=== PATIENT | male | born 1955 | race Caucasian/White ===

== ENCOUNTER 2022-08-19 20:58 | Inpatient (IN) | payer MEDICARE, OTHER ==
[2022-08-19] MEDS ORDERED: MAGNESIUM SULFATE-D5W PMX 1 GM in DEXTROSE/WATER 1 100ML.BAG IVPB STA (22:33)
[2022-08-19] MEDS ORDERED: SODIUM CHLORIDE 0.9% 500 ML 500 ML IV STA (22:33)
[2022-08-19] MEDS ORDERED: ALBUTEROL NEBULIZED 2.5 MG/3 ML INHALATION STA (22:33)
[2022-08-19] MEDS ORDERED: IPRATROPIUM 0.5 MG/2.5 ML NEBU INHALATION STA (22:33)
[2022-08-19] MEDS ORDERED: predniSONE 20 MG TAB PO STA (22:33)
--- NOTE | 2022-08-19 23:25 | XR ---
EXAMINATION TYPE: XR chest 2V DATE OF EXAM: 08/19/2022 COMPARISON: NONE HISTORY: Difficulty breathing TECHNIQUE: 2 views FINDINGS: Heart and mediastinum are normal. Lungs are clear of consolidation. There is slight bluntin g right costophrenic angle. There are no hilar masses. There are chest leads. IMPRESSION: Mild pleural reaction lateral right lung base. Normal heart.
[2022-08-19 23:40] LABS: ALT 26 U/L (4-49); AST 45 U/L (17-59); African American GFR (CKD) >90 (>60 ml/min/1.73 sqM); Albumin 3.9 g/dL (3.5-5.0); Alkaline Phosphatase 70 U/L (38-126); Anion Gap 10 mmol/L; Blood Urea Nitrogen 14 mg/dL (9-20); Calcium 8.5 mg/dL (8.4-10.2); Carbon Dioxide 24 mmol/L (22-30); Chloride 98 mmol/L (98-107); Glucose 106 mg/dL (74-99); Magnesium 2.1 mg/dL (1.6-2.3); Non-African American GFR(CKD) >90 (>60 ml/min/1.73 sqM); Sodium 132 mmol/L (137-145); Total Bilirubin 0.8 mg/dL (0.2-1.3); Total Protein 6.6 g/dL (6.3-8.2)
[2022-08-19 23:51] LABS: Partial Thromboplastin Time 28.2 sec (22.0-30.0); Prothrombin Time 10.4 sec (9.0-12.0)
[2022-08-19 23:53] LABS: Basophils # (A) 0.1 k/uL (0-0.2); Basophils % (A) 1 %; Eosinophils # (A) 0.1 k/uL (0-0.7); Eosinophils % (A) 1 %; HCT 40.9 % (39.0-53.0); HGB 14.5 gm/dL (13.0-17.5); Lymphocytes # (A) 2.2 k/uL (1.0-4.8); Lymphocytes % (A) 23 %; MCH 33.2 pg (25.0-35.0); MCHC 35.6 g/dL (31.0-37.0); MCV 93.2 fL (80.0-100.0); Mean Platelet Volume 10.2; Monocytes % (A) 11 %; Neutrophils # (A) 5.7 k/uL (1.3-7.7); Neutrophils % (A) 61 %; Platelet Count 183 k/uL (150-450); RBC 4.38 m/uL (4.30-5.90); RDW 13.4 % (11.5-15.5); WBC 9.4 k/uL (3.8-10.6)
[2022-08-20 00:02] LABS: Potassium 4.8 mmol/L (3.5-5.1)
--- NOTE | 2022-08-20 00:14 | ED ---
SOB HPI - General Chief Complaint: Shortness of Breath Stated Complaint: Oxygen 85,KOFI Time Seen by Provider: 08/19/22 22:19 Source: patient, family Mode of arrival: wheelchair Limitations: no limitations - History of Present Illness Initial Comments: Patient presents with shortness of breath. His shortness of breath is worse with walking or exertion. He has no pain or swelling the arms or legs. He has no palpitations. He has no nausea or vomiting. He is not complaining of any chest pain or pressure or tightness. He has no headache. He has no neck pain or stiffness. - Related Data Home Medications Medication Instructions Recorded Confirmed Lansoprazole [Prevacid] PO DAILY 04/05/14 04/05/14 Previous Rx's Medication Instructions Recorded Hydrocodone/Acetaminophen 1 each PO Q4HR PRN #20 tablet 04/05/14 [Hydrocodone/Acetaminophen 5-325] Naproxen [Naprosyn] 500 mg PO Q12HR #24 tab 04/05/14 Allergies Allergy/AdvReac Type Severity Reaction Status Date / Time No Known Allergies Allergy Verified 08/19/22 21:35 Review of Systems ROS Statement: Those systems with pertinent positive or pertinent negative responses have been documented in the HPI. ROS Other: All systems not noted in ROS Statement are negative. Past Medical History Past Medical History: COPD Additional Past Medical History / Comment(s): sleep apnea History of Any Multi-Drug Resistant Organisms: None Reported Past Surgical History: Tonsillectomy Past Psychological History: No Psychological Hx Reported Smoking Status: Current every day smoker Past Alcohol Use History: None Reported Past Drug Use History: None Reported General Exam Limitations: no limitations General appearance: alert, in no apparent distress Head exam: Present: atraumatic, normocephalic, normal inspection Eye exam: Present: normal appearance, PERRL, EOMI. Absent: scleral icterus, conjunctival injection, periorbital swelling ENT exam: Present: normal exam, mucous membranes moist Neck exam: Present: normal inspection. Absent: tenderness, meningismus, lymphadenopathy Respiratory exam: Present: respiratory distress, wheezes. Absent: rales, rhonchi, stridor Cardiovascular Exam: Present: regular rate, normal rhythm, normal heart sounds. Absent: systolic murmur, diastolic murmur, rubs, gallop, clicks GI/Abdominal exam: Present: soft, normal bowel sounds. Absent: distended, tenderness, guarding, rebound, rigid Extremities exam: Present: normal inspection, full ROM, normal capillary refill. Absent: tenderness, pedal edema, joint swelling, calf tenderness Back exam: Present: normal inspection Neurological exam: Present: alert, oriented X3, CN II-XII intact Psychiatric exam: Present: normal affect, normal mood Skin exam: Present: warm, dry, intact, normal color. Absent: rash Course Vital Signs 08/19/22 08/19/22 08/19/22 21:35 22:53 23:17 Temperature 98.3 F Pulse Rate 91 80 87 Respiratory 18 Rate Blood Pressure 122/72 O2 Sat by Pulse 91 L Oximetry 08/19/22 23:57 Temperature Pulse Rate 89 Respiratory 19 Rate Blood Pressure 113/81 O2 Sat by Pulse 91 L Oximetry Medical Decision Making - Medical Decision Making Patient presents with shortness of breath. He is very hypoxic on room air requiring supplemental oxygen. He did not improve with IV magnesium. He will be admitted to the hospital. - Lab Data Result diagrams: 08/19/22 23:15 08/19/22 23:15 Lab Results 08/19/22 08/19/22 08/19/22 Range/Units 23:15 23:15 23:15 WBC 9.4 (3.8-10.6) k/uL RBC 4.38 (4.30-5.90) m/uL Hgb 14.5 (13.0-17.5) gm/dL Hct 40.9 (39.0-53.0) % MCV 93.2 (80.0-100.0) fL MCH 33.2 (25.0-35.0) pg MCHC 35.6 (31.0-37.0) g/dL RDW 13.4 (11.5-15.5) % Plt Count 183 (150-450) k/uL MPV 10.2 Neutrophils % 61 % Lymphocytes % 23 % Monocytes % 11 % Eosinophils % 1 % Basophils % 1 % Neutrophils # 5.7 (1.3-7.7) k/uL Lymphocytes # 2.2 (1.0-4.8) k/uL Monocytes # 1.0 (0-1.0) k/uL Eosinophils # 0.1 (0-0.7) k/uL Basophils # 0.1 (0-0.2) k/uL PT 10.4 (9.0-12.0) sec INR 1.0 (<1.2) APTT 28.2 (22.0-30.0) sec Sodium (137-145) mmol/L Potassium (3.5-5.1) mmol/L Chloride (98-107) mmol/L Carbon Dioxide (22-30) mmol/L Anion Gap mmol/L BUN (9-20) mg/dL Creatinine (0.66-1.25) mg/dL Est GFR (CKD-EPI)AfAm (>60 ml/min/1.73 sqM) Est GFR (CKD-EPI)NonAf (>60 ml/min/1.73 sqM) Glucose (74-99) mg/dL Plasma Lactic Acid Brad (0.7-2.0) mmol/L Calcium (8.4-10.2) mg/dL Magnesium (1.6-2.3) mg/dL Total Bilirubin (0.2-1.3) mg/dL AST (17-59) U/L ALT (4-49) U/L Alkaline Phosphatase (38-126) U/L Troponin I (0.000-0.034) ng/mL Total Protein (6.3-8.2) g/dL Albumin (3.5-5.0) g/dL Coronavirus (PCR) Detected A (Not Detectd) 08/19/22 08/19/22 08/19/22 Range/Units 23:15 23:15 23:15 WBC (3.8-10.6) k/uL RBC (4.30-5.90) m/uL Hgb (13.0-17.5) gm/dL Hct (39.0-53.0) % MCV (80.0-100.0) fL MCH (25.0-35.0) pg MCHC (31.0-37.0) g/dL RDW (11.5-15.5) % Plt Count (150-450) k/uL MPV Neutrophils % % Lymphocytes % % Monocytes % % Eosinophils % % Basophils % % Neutrophils # (1.3-7.7) k/uL Lymphocytes # (1.0-4.8) k/uL Monocytes # (0-1.0) k/uL Eosinophils # (0-0.7) k/uL Basophils # (0-0.2) k/uL PT (9.0-12.0) sec INR (<1.2) APTT (22.0-30.0) sec Sodium 132 L (137-145) mmol/L Potassium 4.8 (3.5-5.1) mmol/L Chloride 98 (98-107) mmol/L Carbon Dioxide 24 (22-30) mmol/L Anion Gap 10 mmol/L BUN 14 (9-20) mg/dL Creatinine 0.84 (0.66-1.25) mg/dL Est GFR (CKD-EPI)AfAm >90 (>60 ml/min/1.73 sqM) Est GFR (CKD-EPI)NonAf >90 (>60 ml/min/1.73 sqM) Glucose 106 H (74-99) mg/dL Plasma Lactic Acid Brad 1.1 (0.7-2.0) mmol/L Calcium 8.5 (8.4-10.2) mg/dL Magnesium 2.1 (1.6-2.3) mg/dL Total Bilirubin 0.8 (0.2-1.3) mg/dL AST 45 (17-59) U/L ALT 26 (4-49) U/L Alkaline Phosphatase 70 (38-126) U/L Troponin I 0.021 (0.000-0.034) ng/mL Total Protein 6.6 (6.3-8.2) g/dL Albumin 3.9 (3.5-5.0) g/dL Coronavirus (PCR) (Not Detectd) 08/20/22 00:14 Twelve-lead EKG shows ventricular rate 92 bpm, normal MA interval and QRS complexes, no ST elevation or depression, interpreted by me as normal sinus rhythm. Critical Care Time Critical Care Time: Yes (Initiation of IV magnesium) Total Critical Care Time: 35 Disposition Clinical Impression: COPD (chronic obstructive pulmonary disease) Disposition: ADMITTED IP TO THIS HOSP Condition: Serious Is patient prescribed a controlled substance at d/c from ED?: No Referrals: Taz Chance DO [Primary Care Provider] - 1-2 days
[2022-08-20] MEDS ORDERED: ONDANSETRON 4 MG/2 ML VIAL IVP PRN (00:15)
[2022-08-20] MEDS ORDERED: MAG HYDROX/AL HYDROX/SIMETH 30 ML CUP PO PRN (00:15)
[2022-08-20] MEDS ORDERED: TEMAZEPAM 7.5 MG CAP PO PRN (00:15)
[2022-08-20] MEDS ORDERED: DOCUSATE 100 MG CAP PO PRN (00:15)
[2022-08-20] MEDS ORDERED: ALPRAZolam 0.25 MG TAB PO PRN (00:15)
[2022-08-20] MEDS ORDERED: NALOXONE 0.4 MG/ML 1 ML VIAL IV PRN (00:15)
[2022-08-20] MEDS ORDERED: HYDROcodone/APAP 5-325MG 1 EACH TAB PO PRN (00:15)
[2022-08-20] MEDS ORDERED: ACETAMINOPHEN TAB 325 MG TAB PO PRN (00:15)
[2022-08-20] MEDS: SODIUM CHLORIDE 0.9% 1,000 ML IV SCH (00:27)
[2022-08-20] MEDS ORDERED: ALBUTEROL HFA INHALER INHALATION PRN (09:42)
[2022-08-20] MEDS: methylPREDNISolone SOD SUCCI 125 MG/2 ML VIAL IV SCH ×2 (11:58→18:27)
[2022-08-20] MEDS: ALBUTEROL HFA INHALER INHALATION SCH ×3 (12:15→19:25)
--- NOTE | 2022-08-20 13:50 | P.CNPUL ---
History of Present Illness Consult date: 08/20/22 Requesting physician: Magen Damon Reason for consult: dyspnea, abnormal CXR/CT Chief complaint: Shortness of breath, cough, congestion 1 week History of present illness: This is a pleasant 67-year-old male patient with a known history of chronic and ongoing tobacco dependence of 48 years. He has no regular primary care provider. He is not on any medications on a regular basis. He had been seen in the clinic and given an inhaler for 1 week history of shortness breath cough and congestion without much improvement. He presented here to the emergency room yesterday for the same. Chest x-ray reveals some atelectasis in the right lung base. Lab results revealed WBC 9.4. Hemoglobin 14.5. Platelet count 183. Sodium 132. Potassium 4.8. Chloride 98. Bicarb 24. BUN 14. Creatinine 0.84. Troponins negative 3. ProBNP 243. Beckford virus by PCR positive. He is not vaccinated. He is seen today in consultation on the regular medical floor. Awake and alert in no acute distress. Maintaining O2 saturations in the 90s on 3 L/m per nasal cannula. 0.9 normal saline 20 ML's per hour. No fever or chills. He was initiated on Review of Systems REVIEW OF SYSTEMS: CONSTITUTIONAL: Denies any recent significant weight loss or weight gain. EYES: Denies change in vision. EARS, NOSE, MOUTH, THROAT: Denies headaches, denies sore throat. CARDIOVASCULAR: Denies chest pain, palpitations or syncopal episodes. RESPIRATORY: Positive for shortness of breath, cough, congestion no hemoptysis. GASTROINTESTINAL: Denies change in appetite, denies abdominal pain GENITOURINARY: Denies hematuria, denies infections. MUSKULOSKELETAL: Denies pain, denies swelling. INTEGUMENTARY: Denies rash, denies eczema. NEUROLOGICAL: Denies recent memory loss, no recent seizure activity. PSYCHIATRIC: Denies anxiety, denies depression. HEMATOLOGIC/LYMPHATIC: Denies anemia, denies enlarged lymph nodes. Past Medical History Past Medical History: COPD Additional Past Medical History / Comment(s): sleep apnea History of Any Multi-Drug Resistant Organisms: None Reported Past Surgical History: Tonsillectomy Past Anesthesia/Blood Transfusion Reactions: No Reported Reaction Past Psychological History: No Psychological Hx Reported Smoking Status: Current every day smoker Past Alcohol Use History: None Reported Past Drug Use History: None Reported Medications and Allergies Home Medications Medication Instructions Recorded Confirmed Type Albuterol Sulfate [Albuterol 2 puff PO RT-Q4H PRN 08/20/22 08/20/22 History Sulfate Hfa] Allergies Allergy/AdvReac Type Severity Reaction Status Date / Time No Known Allergies Allergy Verified 08/20/22 08:54 Physical Exam Vitals: Vital Signs Temp Pulse Pulse Resp BP BP Pulse Ox 08/20/22 08:57 93 L 08/20/22 07:49 98.7 F 74 18 120/71 90 L 08/20/22 02:12 98.7 F 78 16 96/61 92 L 08/20/22 01:00 91 19 119/75 93 L 08/19/22 23:57 89 19 113/81 91 L 08/19/22 23:17 87 08/19/22 22:53 80 08/19/22 21:35 98.3 F 91 18 122/72 91 L FiO2 08/20/22 08:57 3 08/20/22 07:49 08/20/22 02:12 08/20/22 01:00 08/19/22 23:57 08/19/22 23:17 08/19/22 22:53 08/19/22 21:35 Intake and Output 08/19/22 08/20/22 08/20/22 22:59 06:59 14:59 Intake Total 240 Output Total 300 Balance -300 240 Intake: Oral 240 Output: Urine 300 Other: Weight 117.934 kg 117.934 kg GENERAL EXAM: Alert, pleasant 67-year-old male patient, on 3 L nasal cannula, comfortable in no apparent distress. HEAD: Normocephalic. EYES: Normal reaction of pupils, equal size. NOSE: Clear with pink turbinates. THROAT: No erythema or exudates. NECK: No masses, no JVD. CHEST: No chest wall deformity. LUNGS: Equal air entry with crackles in the right lung base. CVS: S1 and S2 normal with no audible murmur, regular rhythm. ABDOMEN: No hepatosplenomegaly, normal bowel sounds, no guarding or rigidity. SPINE: No scoliosis or deformity SKIN: No rashes CENTRAL NERVOUS SYSTEM: No focal deficits, tone is normal in all 4 extremities. EXTREMITIES: There is no peripheral edema. No clubbing, no cyanosis. Peripheral pulses are intact. Results - Laboratory Findings CBC and BMP: 08/19/22 23:15 08/19/22 23:15 PT/INR, D-dimer PT 10.4 sec (9.0-12.0) 08/19/22 23:15 INR 1.0 (<1.2) 08/19/22 23:15 Abnormal lab findings: Abnormal Labs 08/19/22 10 23:15 23:15 Sodium 132 L Glucose 106 H Coronavirus (PCR) Detected A - Diagnostic Findings Chest x-ray: image reviewed Assessment and Plan Assessment: Acute hypoxemic respiratory failure secondary to an acute exacerbation of susp ected chronic obstructive pulmonary disease COVID-19 infection without evidence of COVID-19 pneumonia, not vaccinated Chronic and ongoing tobacco dependence of 48 years History of sleep apnea not on CPAP Plan: The patient was seen and evaluated Chest x-ray, labs and medications reviewed Add Symbicort, albuterol, IV Solu-Medrol Titrate the FiO2 as tolerated Educated regarding importance of complete smoking cessation NicoDerm patch will be offered Would benefit from pulmonary function tests in the outpatient setting We'll continue to follow and make further recommendations based on his clinical status I have personally seen and examined the patient, performed the documentation and the assessment and plan as written. Number of minutes spent on the visit: 20.
[2022-08-20] MEDS: NICOTINE 14MG/24HR PATCH TRANSDERM SCH (14:49)
[2022-08-20] MEDS: SYMBICORT 160-4.5 MCG INHALER INHALATION SCH (19:25)
[2022-08-20] MEDS ORDERED: FORMOTEROL FUMARATE 20 MCG/2 ML NEBU INHALATION SCH (20:00)
[2022-08-20] MEDS ORDERED: BUDESONIDE 1 MG/2 ML NEBU INHALATION SCH (20:00)
--- NOTE | 2022-08-21 00:54 | HP ---
HISTORY AND PHYSICAL CHIEF COMPLAINT: Shortness of breath. HISTORY OF PRESENT ILLNESS: This 67-year-old gentleman with a past medical history of multiple medical problems, COPD, sleep apnea, was complaining of increasing shortness of breath for the last several days. The patient with cough also. The patient apparently had multiple family members affected with COVID and the COVID is positive, and the patient was admitted for further evaluation and treatment. There is no history of any fever, rigors, or chills at this time. PAST MEDICAL HISTORY: COPD, sleep apnea, reviewed. HOME MEDICATIONS: Reviewed and include albuterol p.r.n. ALLERGIES: None. FAMILY HISTORY: No history of heart diseases or strokes in the family. SOCIAL HISTORY: History of smoking. REVIEW OF SYSTEMS: A 14-point review of systems is negative except as mentioned earlier. PHYSICAL EXAMINATION: VITAL SIGNS: Pulse is 78, blood pressure 90/61, respirations 16. HEENT: Conjunctivae normal. NECK: No JVD. CARDIOVASCULAR: S1, S2. RESPIRATION: Bilateral scattered rhonchi and crackles. ABDOMEN: Soft, nontender. LEGS: No edema. NERVOUS SYSTEM: Nonfocal. LABORATORY DATA: Reviewed. . Chest x-ray reviewed. ASSESSMENT: 1. Chronic obstructive pulmonary disease acute exacerbation. 2. Acute COVID-19 infection. 3. Multiple medical issues. RECOMMENDATIONS: In this 67-year-old gentleman, who presented with multiple complex medical issues, we will monitor the patient closely. Bronchodilators, steroids. Repeat labs. Closely follow with Pulmonary. Guarded prognosis because of multiple complex medical issues. Further recommendations to follow. MMODL / IJN: [id number] / JENNIFER
[2022-08-21] MEDS: methylPREDNISolone SOD SUCCI 125 MG/2 ML VIAL IV SCH ×4 (04:00→17:40)
[2022-08-21] MEDS: SODIUM CHLORIDE 0.9% 1,000 ML IV SCH (06:31)
[2022-08-21] MEDS: ALBUTEROL HFA INHALER INHALATION SCH ×4 (08:10→20:09)
[2022-08-21] MEDS: SYMBICORT 160-4.5 MCG INHALER INHALATION SCH ×2 (08:11→20:09)
[2022-08-21] MEDS: NICOTINE 14MG/24HR PATCH TRANSDERM SCH (09:58)
[2022-08-21 10:44] LABS: Basophils # (A) 0.03 X 10*3/uL (0.00-0.10); Basophils % (A) 0.3 %; Eosinophils # (A) 0 X 10*3/uL (0.04-0.35); Eosinophils % (A) 0 %; HCT 42.8 % (39.6-50.0); HGB 14.1 g/dL (13.0-17.0); Immature Grans, Automated 0.8 %; Lymphocytes # (A) 1.23 X 10*3/uL (0.90-5.00); Lymphocytes % (A) 11.1 %; MCH 31.8 pg (27.0-32.0); MCHC 32.9 g/dL (32.0-37.0); MCV 96.6 fL (80.0-97.0); Mean Platelet Volume 10.6 fL (9.5-12.2); Monocytes # (A) 0.58 X 10*3/uL (0.20-1.00); Monocytes % (A) 5.2 %; NRBC Per 100 WBC 0 /100 WBCS (0.0-0.0); Neutrophils # (A) 9.15 X 10*3/uL (1.80-7.70); Neutrophils % (A) 82.6 %; Platelet Count 249 X 10*3/uL (140-440); RBC 4.43 X 10*6/uL (4.40-5.60); RDW 12.9 % (11.5-14.5); WBC 11.08 X 10*3/uL (4.50-10.00)
[2022-08-21 11:24] LABS: African American GFR (CKD) 113.2 (60.0-200.0); Anion Gap 9.8 mmol/L (10.00-18.00); BUN/Creat Ratio 15.57 Ratio (12.00-20.00); Blood Urea Nitrogen 10.9 mg/dL (9.0-27.0); Calcium 8.9 mg/dL (8.7-10.3); Carbon Dioxide 23.2 mmol/L (20.0-27.5); Non-African American GFR(CKD) 97.7 (60.0-200.0); Potassium 4.6 mmol/L (3.5-5.5)
--- NOTE | 2022-08-21 13:01 | P.PN ---
Subjective Progress Note Date: 08/21/22 This is a pleasant 67-year-old male patient with a known history of chronic and ongoing tobacco dependence of 48 years. He has no regular primary care provider. He is not on any medications on a regular basis. He had been seen in the clinic and given an inhaler for 1 week history of shortness breath cough and congestion without much improvement. He presented here to the emergency room yesterday for the same. Chest x-ray reveals some atelectasis in the right lung base. Lab results revealed WBC 9.4. Hemoglobin 14.5. Platelet count 183. Sodium 132. Potassium 4.8. Chloride 98. Bicarb 24. BUN 14. Creatinine 0.84. Troponins negative 3. ProBNP 243. Beckford virus by PCR positive. He is not vaccinated. He is seen today in consultation on the regular medical floor. Awake and alert in no acute distress. Maintaining O2 saturations in the 90s on 3 L/m per nasal cannula. 0.9 normal saline 20 ML's per hour. No fever or chills. The patient is seen today 08/21/2022 in follow-up on the regular medical floor. He is currently resting comfortably in bed. He states he is feeling better. Breath sounds still with coarse rhonchi and wheeze. He is maintaining O2 saturations in the low 90s high 80s on 4 L/m per nasal cannula. Normal saline at 20 ML's per hour. White count 11.0. Hemoglobin 14.1. Sodium 135. Potassium 4.6. BUN 11. Creatinine 0.7. Continue on Symbicort, albuterol, IV Solu-Medrol. NicoDerm patch in place. Normal saline at KVO. Objective - Vital Signs Vital signs: Vital Signs Temp 97.6 F 08/21/22 06:12 Pulse 78 08/21/22 06:12 Resp 21 08/21/22 06:12 BP 122/66 08/21/22 06:12 Pulse Ox 92 L 08/21/22 08:11 FiO2 3 08/20/22 08:57 Intake & Output 08/20/22 08/21/22 08/21/22 18:59 06:59 18:59 Intake Total 360 Output Total 400 Balance 360 -400 Intake: Oral 360 Output: Urine 400 Other: # Voids 4 - Exam GENERAL EXAM: Alert, pleasant 67-year-old male patient, on 4 L nasal cannula, co mfortable in no apparent distress. HEAD: Normocephalic. EYES: Normal reaction of pupils, equal size. NOSE: Clear with pink turbinates. THROAT: No erythema or exudates. NECK: No masses, no JVD. CHEST: No chest wall deformity. LUNGS: Equal air entry with coarse rhonchi, wheeze. CVS: S1 and S2 normal with no audible murmur, regular rhythm. ABDOMEN: No hepatosplenomegaly, normal bowel sounds, no guarding or rigidity. SPINE: No scoliosis or deformity SKIN: No rashes CENTRAL NERVOUS SYSTEM: No focal deficits, tone is normal in all 4 extremities. EXTREMITIES: There is no peripheral edema. No clubbing, no cyanosis. Peripheral pulses are intact. - Labs CBC & Chem 7: 08/21/22 07:02 08/21/22 07:02 Labs: Abnormal Lab Results - Last 24 Hours (Table) 08/21/22 08/21/22 Range/Units 07:02 07:02 WBC 11.08 H (4.50-10.00) X 10*3/uL Immature Gran # 0.09 H (0.00-0.04) X 10*3/uL Neutrophils # 9.15 H (1.80-7.70) X 10*3/uL Eosinophils # 0 L (0.04-0.35) X 10*3/uL Anion Gap 9.80 L (10.00-18.00) mmol/L Glucose 236 H (70-110) mg/dL Assessment and Plan Assessment: Acute hypoxemic respiratory failure secondary to an acute exacerbation of suspected chronic obstructive pulmonary disease COVID-19 infection without evidence of COVID-19 pneumonia, not vaccinated Chronic and ongoing tobacco dependence of 48 years History of sleep apnea not on CPAP Plan: The patient was seen and evaluated Labs and medications reviewed Continue Symbicort, albuterol, IV Solu-Medrol Titrate the FiO2 as tolerated We'll continue to follow I have personally seen and examined the patient, performed the documentation and the assessment and plan as written. Number of minutes spent on the visit: 10.
[2022-08-22] MEDS: methylPREDNISolone SOD SUCCI 125 MG/2 ML VIAL IV SCH ×5 (00:16→22:14)
--- NOTE | 2022-08-22 05:59 | PN ---
PROGRESS NOTE SUBJECTIVE: This is a 67-year-old gentleman who was admitted with COPD acute exacerbation, also had acute COVID-19 infection. The patient is also slightly hypoxic. The patient is being closely monitored. Dr. Pal is following the patient closely. The patient is on bronchodilators and also on steroids. No chest pain. No palpitation. PHYSICAL EXAMINATION: VITAL SIGNS: Pulse is 78, blood pressure is 127/60, respirations 21. HEENT: Conjunctivae normal. NECK: No JVD. CARDIOVASCULAR: S1, S2. RESPIRATIONS: Breath sounds diminished at the bases. Scattered rhonchi. ABDOMEN: Soft. NERVOUS SYSTEM: No focal deficits. LABS: Reviewed. ASSESSMENT: 1. Chronic obstructive pulmonary disease acute exacerbation. 2. Acute COVID-19 infection. 3. Multiple medical issues. RECOMMENDATIONS AND DISCUSSION: Recommend to continue current management and symptomatic treatment. Continue with antibiotics. Continue with rest of medications. Continue with bronchodilators, steroids, monitor closely. Guarded prognosis. Further recommendations to follow. Closely follow with Pulmonary. MMODL / IJN: [id number] /
[2022-08-22] MEDS: ALBUTEROL HFA INHALER INHALATION SCH ×4 (08:14→21:15)
[2022-08-22] MEDS: SYMBICORT 160-4.5 MCG INHALER INHALATION SCH ×2 (08:14→21:15)
[2022-08-22] MEDS: NICOTINE 14MG/24HR PATCH TRANSDERM SCH (11:05)
--- NOTE | 2022-08-22 11:33 | P.PN ---
Subjective Progress Note Date: 08/22/22 This is a pleasant 67-year-old male patient with a known history of chronic and ongoing tobacco dependence of 48 years. He has no regular primary care provider. He is not on any medications on a regular basis. He had been seen in the clinic and given an inhaler for 1 week history of shortness breath cough and congestion without much improvement. He presented here to the emergency room yesterday for the same. Chest x-ray reveals some atelectasis in the right lung base. Lab results revealed WBC 9.4. Hemoglobin 14.5. Platelet count 183. Sodium 132. Potassium 4.8. Chloride 98. Bicarb 24. BUN 14. Creatinine 0.84. Troponins negative 3. ProBNP 243. Beckford virus by PCR positive. He is not vaccinated. He is seen today in consultation on the regular medical floor. Awake and alert in no acute distress. Maintaining O2 saturations in the 90s on 3 L/m per nasal cannula. 0.9 normal saline 20 ML's per hour. No fever or chills. The patient is seen today 08/21/2022 in follow-up on the regular medical floor. He is currently resting comfortably in bed. He states he is feeling better. Breath sounds still with coarse rhonchi and wheeze. He is maintaining O2 saturations in the low 90s high 80s on 4 L/m per nasal cannula. Normal saline at 20 ML's per hour. White count 11.0. Hemoglobin 14.1. Sodium 135. Potassium 4.6. BUN 11. Creatinine 0.7. Continue on Symbicort, albuterol, IV Solu-Medrol. NicoDerm patch in place. Normal saline at KVO. The patient is seen today 08/22/2022 in follow-up on the regular medical floor. He is currently resting comfortably in bed. Maintaining O2 saturations in the 90s on 3 L/m per nasal cannula. Denies any worsening shortness of breath, cough or congestion. Still not quite back to baseline. Afebrile. Hemodynamically stable. He is continued on Symbicort, albuterol, IV Solu-Medrol. NicoDerm patch in place. Objective - Vital Signs Vital signs: Vital Signs Temp 97.5 F L 08/22/22 06:00 Pulse 64 08/22/22 06:00 Resp 18 08/22/22 06:00 BP 158/83 08/22/22 06:00 Pulse Ox 95 08/22/22 06:00 FiO2 3 08/20/22 08:57 Intake & Output 08/21/22 08/22/22 08/22/22 18:59 06:59 18:59 Intake Total 1080 Balance 1080 Intake: Oral 1080 Other: Voiding Method Toilet Toilet # Voids 3 2 - Exam GENERAL EXAM: Alert, pleasant 67-year-old male patient, on 4 L nasal cannula, comfortable in no apparent distress. HEAD: Normocephalic. EYES: Normal reaction of pupils, equal size. NOSE: Clear with pink turbinates. THROAT: No erythema or exudates. NECK: No masses, no JVD. CHEST: No chest wall deformity. LUNGS: Equal air entry with coarse rhonchi, wheeze. CVS: S1 and S2 normal with no audible murmur, regular rhythm. ABDOMEN: No hepatosplenomegaly, normal bowel sounds, no guarding or rigidity. SPINE: No scoliosis or deformity SKIN: No rashes CENTRAL NERVOUS SYSTEM: No focal deficits, tone is normal in all 4 extremities. EXTREMITIES: There is no peripheral edema. No clubbing, no cyanosis. Peripheral pulses are intact. - Labs CBC & Chem 7: 08/21/22 07:02 08/21/22 07:02 Assessment and Plan Assessment: Acute hypoxemic respiratory failure secondary to an acute exacerbation of suspected chronic obstructive pulmonary disease COVID-19 infection without evidence of COVID-19 pneumonia, not vaccinated Chronic and ongoing tobacco dependence of 48 years History of sleep apnea not on CPAP Plan: The patient was seen and evaluated Medications reviewed Continue Symbicort, albuterol, IV Solu-Medrol Titrate the FiO2 as tolerated Increase his activity as tolerated We'll continue to follow I have personally seen and examined the patient, performed the documentation and the assessment and plan as written. Number of minutes spent on the visit: 10.
--- NOTE | 2022-08-22 12:35 | XR ---
EXAMINATION TYPE: XR chest 1V portable DATE OF EXAM: 08/22/2022 12:23 PM COMPARISON: Chest radiographs from 08/19/2022 TECHNIQUE: XR chest 1V portable Frontal view of the chest. CLINICAL INDICATION:Male, 67 years old with history of copd, covid; FINDINGS: Lungs/Pleura: There is no evidence of pleural effusion or pneumothorax. Subtle bibasilar streaky grou ndglass opacities. Pulmonary vascularity: Unremarkable. Heart/mediastinum: Cardiomediastinal silhouette is unremarkable. Musculoskeletal: No acute osseous pathology. IMPRESSION: Subtle bibasilar streaky groundglass opacities likely related to known Covid infection.
[2022-08-22] MEDS: ENOXAPARIN 40 MG/0.4 ML SYRINGE SQ SCH (12:40)
[2022-08-22] MEDS: ASCORBIC ACID 500 MG TAB PO SCH (17:04)
[2022-08-22] MEDS: CHOLECALCIFEROL 25 MCG (1000 IU) TABLET PO SCH (17:07)
[2022-08-22] MEDS: ZINC SULFATE 220 MG CAP PO SCH (17:07)
--- NOTE | 2022-08-22 17:21 | CT ---
EXAMINATION TYPE: CT angio chest DATE OF EXAM: 08/22/2022 COMPARISON: None HISTORY: R/O PE, Elevated d-dimer, Covid + CT DLP: 814.6 mGycm Automated exposure control for dose reduction was used. CONTRAST: Performed with IV Contrast, patient injected with 100 mL of Isovue 370. There are Three-D postprocessed images. There is some patchy atelectasis at the lung bases. No pleural effusion. Heart size is normal. No per icardial effusion. There are no hilar masses. There is no mediastinal adenopathy. Thoracic aorta show s mild atheromatous changes. No aneurysm or dissection. No evidence of filling defect in the pulmonary arteries. The thoracic spine is intact. No compression fracture. Sternum is intact of the abdominal soft tissue s are intact. IMPRESSION: No evidence of pulmonary embolism. There is some atelectasis at both lung bases.
[2022-08-23] MEDS: SODIUM CHLORIDE 0.9% 1,000 ML IV SCH ×2 (04:14→04:15)
[2022-08-23] MEDS: methylPREDNISolone SOD SUCCI 125 MG/2 ML VIAL IV SCH ×2 (04:23→09:54)
--- NOTE | 2022-08-23 04:44 | PN ---
PROGRESS NOTE DATE OF SERVICE: 08/22/2022 SUBJECTIVE: This is a 67-year-old gentleman who was admitted with COPD exacerbation, also had acute COVID-19. The patient is being monitored closely. The patient is on usual treatments. No chest pain. No palpitation. PHYSICAL EXAMINATION: VITAL SIGNS: Pulse is 64, blood pressure 140/72, respirations 18, pulse ox is 93% on 4 L. HEENT: Conjunctivae normal. NECK: No JVD. CARDIOVASCULAR: S1, S2 muffled RESPIRATIONS: Breath sounds diminished at the bases. A few scattered rhonchi. ABDOMEN: Soft. NERVOUS SYSTEM: No focal deficits. LABS: Reviewed. ASSESSMENT: 1. Chronic obstructive pulmonary disease acute exacerbation. 2. Acute COVID-19 infection. 3. Multiple medical issues. RECOMMENDATIONS AND DISCUSSION: Recommend to continue current management and symptomatic treatment. Continue the usual treatment. Otherwise, I would recommend a repeat chest x-ray today and that the patient is hypoxic, the patient might need home O2 and closely follow with Dr. Pal and further recommendations to follow. Discussed with the patient. MMODL / IJN: [id number] /
[2022-08-23] MEDS: ENOXAPARIN 40 MG/0.4 ML SYRINGE SQ SCH (07:21)
[2022-08-23] MEDS: NICOTINE 14MG/24HR PATCH TRANSDERM SCH (07:22)
[2022-08-23] MEDS: CHOLECALCIFEROL 25 MCG (1000 IU) TABLET PO SCH (07:22)
[2022-08-23] MEDS: ASCORBIC ACID 500 MG TAB PO SCH (07:22)
[2022-08-23] MEDS: ZINC SULFATE 220 MG CAP PO SCH (07:22)
[2022-08-23] MEDS: SYMBICORT 160-4.5 MCG INHALER INHALATION SCH (08:58)
[2022-08-23] MEDS: ALBUTEROL HFA INHALER INHALATION SCH ×3 (08:58→16:49)
[2022-08-23 10:19] VITALS: BP 137/82; RESP 17; TEMP 98
[2022-08-23 12:33] VITALS: PULSE 107
--- NOTE | 2022-08-23 12:42 | P.PN ---
Subjective Progress Note Date: 08/23/22 This is a pleasant 67-year-old male patient with a known history of chronic and ongoing tobacco dependence of 48 years. He has no regular primary care provider. He is not on any medications on a regular basis. He had been seen in the clinic and given an inhaler for 1 week history of shortness breath cough and congestion without much improvement. He presented here to the emergency room yesterday for the same. Chest x-ray reveals some atelectasis in the right lung base. Lab results revealed WBC 9.4. Hemoglobin 14.5. Platelet count 183. Sodium 132. Potassium 4.8. Chloride 98. Bicarb 24. BUN 14. Creatinine 0.84. Troponins negative 3. ProBNP 243. [place] virus by PCR positive. He is not vaccinated. He is seen today in consultation on the regular medical floor. Awake and alert in no acute distress. Maintaining O2 saturations in the 90s on 3 L/m per nasal cannula. 0.9 normal saline 20 ML's per hour. No fever or chills. The patient is seen today 08/21/2022 in follow-up on the regular medical floor. He is currently resting comfortably in bed. He states he is feeling better. Breath sounds still with coarse rhonchi and wheeze. He is maintaining O2 saturations in the low 90s high 80s on 4 L/m per nasal cannula. Normal saline at 20 ML's per hour. White count 11.0. Hemoglobin 14.1. Sodium 135. Potassium 4.6. BUN 11. Creatinine 0.7. Continue on Symbicort, albuterol, IV Solu-Medrol. NicoDerm patch in place. Normal saline at KVO. The patient is seen today 08/22/2022 in follow-up on the regular medical floor. He is currently resting comfortably in bed. Maintaining O2 saturations in the 90s on 3 L/m per nasal cannula. Denies any worsening shortness of breath, cough or congestion. Still not quite back to baseline. Afebrile. Hemodynamically stable. He is continued on Symbicort, albuterol, IV Solu-Medrol. NicoDerm patch in place. The patient is seen today 08/23/2022 in follow-up on the regular medical floor. Currently sitting up in a chair at the bedside. Awake and alert in no acute distress. Breathing easier today compared to yesterday. He is anxious to go home. He is continued on Symbicort, albuterol, IV Solu-Medrol. NicoDerm patch in place. Continued on Lovenox for DVT prophylaxis. Vitamin supplements. CT angiogram revealed no evidence of pulmonary embolism. There is some atelectatic changes of the lung bases. Objective - Vital Signs Vital signs: Vital Signs Temp 98.0 F 08/23/22 10:00 Pulse 107 H 08/23/22 12:30 Resp 17 08/23/22 10:00 BP 137/82 08/23/22 10:00 Pulse Ox 89 L 08/23/22 12:30 FiO2 3 08/20/22 08:57 Intake & Output 08/22/22 08/23/22 08/23/22 18:59 06:59 18:59 Intake Total 1080 Balance 1080 Intake: Oral 1080 Other: Voiding Method Toilet # Voids 3 2 - Exam GENERAL EXAM: Alert, pleasant 67-year-old male patient, on 3 L nasal cannula, comfortable in no apparent distress. HEAD: Normocephalic. EYES: Normal reaction of pupils, equal size. NOSE: Clear with pink turbinates. THROAT: No erythema or exudates. NECK: No masses, no JVD. CHEST: No chest wall deformity. LUNGS: Equal air entry with coarse rhonchi, wheeze. CVS: S1 and S2 normal with no audible murmur, regular rhythm. ABDOMEN: No hepatosplenomegaly, normal bowel sounds, no guarding or rigidity. SPINE: No scoliosis or deformity SKIN: No rashes CENTRAL NERVOUS SYSTEM: No focal deficits, tone is normal in all 4 extremities. EXTREMITIES: There is no peripheral edema. No clubbing, no cyanosis. Peripheral pulses are intact. - Labs CBC & Chem 7: 08/21/22 07:02 08/21/22 07:02 Labs: Abnormal Lab Results - Last 24 Hours (Table) 08/22/22 Range/Units 12:20 D-Dimer 1.11 H (<0.60) mg/L FEU Assessment and Plan Assessment: Acute hypoxemic respiratory failure secondary to an acute exacerbation of suspected chronic obstructive pulmonary disease COVID-19 infection without evidence of COVID-19 pneumonia, not vaccinated Chronic and ongoing tobacco dependence of 48 years History of sleep apnea not on CPAP Plan: The patient was seen and evaluated Medications, labs and CAT scan reviewed Cleared for discharge from the pulmonary standpoint Continue Symbicort, albuterol, prednisone taper Evaluate for possible home oxygen Follow-up in the office in 1 week. I have personally seen and examined the patient, performed the documentation and the assessment and plan as written. Number of minutes spent on the visit: 10.
--- NOTE | 2022-08-24 09:47 | P.DS ---
Providers Date of admission: 08/22/22 12:59 Expected date of discharge: 08/23/22 Attending physician: Magen Damon Consults: 08/20/22 00:16 Consult Physician Routine Consulting Provider: Abdiaziz Pal Consult Reason/Comments: COPD, hypoxemia Do you want consulting provider notified?: Yes, Notify in am Primary care physician: Taz Chanec [facility] Course: Final diagnosis COPD acute exacerbation Acute covid 19 infection obesity sleep apnea continued ongoing nicotine dependence full code Discharge disposition Patient is being discharged in a stable condition with guarded prognosis to home. Patient will follow-up with Dr. Chance in the outpatient setting upon discharge. Patient is to follow up with pulmonary as scheduled. Patient to continue inhalers along with prednisone taper and vitamin and zinc supplements. Total time taken is greater than 35 minutes. Hospital course This is a 67-year-old male who was recently admitted shortness of breath and acute exacerbation of COPD. Patient was found to be covid 19 positive. Patient was continued on inhalers along with covid vitamins and sub q lovenox. Patient requiring 02 via NC at 3L and will discharge home on supplemental oxygen to manage COPD and covid. Patient to follow up with pulmonary in 2-3 weeks. Currently no reports of chest pain, worsening shortness of breath, or palpitations. Patient is afebrile. No reports of nausea or vomiting and patient is tolerating diet. Patient will be discharged home today. Physical exam: Gen: This is a 67 year old male who is awake, alert and oriented x3. Well developed, well nourished, obese HEENT: Head is atraumatic, normocephalic. Pupils equal, round. Sclerae is anicteric. NECK: Supple. No JVD. No lymphadenopathy. No thyromegaly. LUNGS: diminished breath sounds bilaterally with course rhonchi. No intercostal retractions. HEART: S1, S2 muffled ABDOMEN: Soft. Bowel sounds are present. No masses. No tenderness. EXTREMITIES: No pedal edema. No calf tenderness. NEUROLOGICAL: Patient is awake, alert and oriented x3. Cranial nerves 2 through 12 are grossly intact. Please refer to medication reconciliation sheet for a list of medications. The impression and plan of care has been dictated by Nitza Lechuga, Nurse Practitioner as directed. Dr. Nelson MD I have performed a history and examination and MDM of this patient, discussed the same with the dictator, and agree with the dictator's assessment and plan as written ,documented as a scribe. Based on total visit time, I have performed more than 50% of the visit. Patient Condition at Discharge: Fair Plan - Discharge Summary Discharge Rx Participant: No New Discharge Prescriptions: New Zinc Sulfate [Orazinc] 220 mg PO DAILY #14 cap predniSONE 10 mg PO DIRECTED #30 tab Budesonide-Formot 160-4.5 Mcg [Symbicort 160-4.5 Mcg Inhaler] 2 puff INHALATION RT-BID 30 Days #1 each Albuterol Inhaler [Ventolin Hfa Inhaler] 2 puff INHALATION RT-QID 30 Days #1 each Albuterol Inhaler [Ventolin Hfa Inhaler] 1 puff INHALATION RT-TID PRN each PRN Reason: Shortness Of Breath Or Wheezing Ascorbic Acid [Vitamin C] 1,000 mg PO DAILY 30 Days #60 tab Cholecalciferol [Vitamin D3 (25 Mcg = 1000 Iu)] 50 mcg PO DAILY 30 Days #60 tab Discontinued Albuterol Sulfate [Albuterol Sulfate Hfa] 2 puff PO RT-Q4H PRN PRN Reason: Shortness Of Breath Discharge Medication List Albuterol Inhaler [Ventolin Hfa Inhaler] 1 puff INHALATION RT-TID PRN each 08/23/22 [Rx] Albuterol Inhaler [Ventolin Hfa Inhaler] 2 puff INHALATION RT-QID 30 Days #1 each 08/23/22 [Rx] Ascorbic Acid [Vitamin C] 1,000 mg PO DAILY 30 Days #60 tab 08/23/22 [Rx] Budesonide-Formot 160-4.5 Mcg [Symbicort 160-4.5 Mcg Inhaler] 2 puff INHALATION RT-BID 30 Days #1 each 08/23/22 [Rx] Cholecalciferol [Vitamin D3 (25 Mcg = 1000 Iu)] 50 mcg PO DAILY 30 Days #60 tab 08/23/22 [Rx] Zinc Sulfate [Orazinc] 220 mg PO DAILY #14 cap 08/23/22 [Rx] predniSONE 10 mg PO DIRECTED #30 tab 08/23/22 [Rx] Follow up Appointment(s)/Referral(s): [facility],Equipment [NON-STAFF] - As Needed (Please call [facility] once home to arrange delivery of the oxygen concentrator) Abdiaziz Pal DO [Doctor of Osteopathic Medicine] - 09/23/22 2:00 pm Taz Chance DO [Primary Care Provider] - 08/30/22 10:30 am Patient Instructions/Handouts: Albuterol (By breathing), Prednisone (By mouth), Zinc Sulfate (By mouth), Ascorbic Acid (By mouth), Budesonide/Formoterol (By breathing), Cholecalciferol (By mouth), How to Stop Smoking (DC), Using Oxygen at Home (DC), COVID-19 (Coronavirus Disease 2019) (DC) Activity/Diet/Wound Care/Special Instructions: Activity Limited until follow-up Follow-up with primary care provider on discharge Continue taking medications as prescribed Continue with albuterol and Symbicort inhaler Continue with oxygen supplementation at 3 L via nasal cannula and wean slowly as tolerated after follow-up with pulmonary Follow up with pulmonary on discharge Discharge Disposition: HOME SELF-CARE
== END 2022-08-23 16:58 | disposition home or self-care (01) | DRG 177 ==
LOC: EC 20:58 → 4SSUR 08-20 00:29 → OBSVTOIN 08-22 12:59
PROVIDERS: ADMIT Hospitalist; ATTEND Hospitalist
DX: U07.1 COVID-19 (principal); J96.01 Acute respiratory failure with hypoxia; J44.1 Chronic obstructive pulmonary disease with (acute) exacerbation; J98.11 Atelectasis; Z79.899 Other long term (current) drug therapy; G47.30 Sleep apnea, unspecified; F17.210 Nicotine dependence, cigarettes, uncomplicated; Z79.1 Long term (current) use of non-steroidal anti-inflammatories (NSAID); E66.9 Obesity, unspecified; Z68.37 Body mass index [BMI] 37.0-37.9, adult
CPT/HCPCS: 36415; 71045; 71046; 71275; 80048; 80053; 83605; 83735; 83880; 84484; 85025; 85379; 85610; 85730; 87635; 93005; 94640; 94760; 96365; 99291